=== PATIENT | female | born 1940 | race Caucasian/White ===

== ENCOUNTER 2019-10-29 09:28 | Emergency (ER) | payer MEDICARE ==
[~2019-10-29] VITALS: Ht 162.6 cm; Wt 66.4 kg
[~2019-10-29 09:28] MED LIST: ACET65TA OR; ACET65TA PO; AUGM875T27 PO; CIPR25SS PO; CIPR500T4 OR; CIPR500T89 PO; COLA50CA3 PO; CRES10TA32 OR; FEOS200T2 PO; FLAG500T OR; FLAG500T PO; No Historical Meds; ONDA-1 OR; ONDA-1 PO; PERC5TAB8 PO; PERC7.5T12 PO; PRAV40TA2 PO; TYLE325T5 PO; anexsia PO
[2019-10-29 10:38] LABS: BASO % 0.4 % (0.0-1.0); EOS # 0.1 10^3/uL (0.0-0.5); EOS % 1.5 % (0.0-3.0); HEMATOCRIT 42.7 % (36.0-47.0); HEMOGLOBIN 13.4 g/dl (12.0-15.5); LYMPH # 1.4 10^3/uL (1.5-5.0); LYMPH % 20.4 % (24.0-44.0); MEAN CORPUSCULAR HEMOGLOBIN 27.8 pg (27.0-33.0); MEAN CORPUSCULAR HGB CONC 31.4 g/dl (32.0-36.5); MEAN CORPUSCULAR VOLUME 88.6 fl (80.0-96.0); MONO # 0.6 10^3/uL (0.0-0.8); MONO % 9.1 % (0.0-5.0); NEUTROPHILS # 4.7 10^3/uL (1.5-8.5); NEUTROPHILS % 68.3 % (36.0-66.0); PLATELET COUNT, AUTOMATED 286 10^3/uL (150-450); RED BLOOD COUNT 4.82 10^6/uL (4.00-5.40); WHITE BLOOD COUNT 6.9 10^3/uL (4.0-10.0)
[2019-10-29 11:28] LABS: BILIRUBIN,DIRECT 0.2 MG/DL (0.0-0.2); BILIRUBIN,TOTAL 1.1 MG/DL (0.2-1.0); TOTAL PROTEIN 8.1 GM/DL (6.4-8.2)
--- NOTE | 2019-10-29 12:25 | REPVR ---
PROCEDURE INFORMATION: Exam: CT Abdomen And Pelvis Without Contrast Exam date and time: 10/29/2019 10:59 AM Age: 79 years old Clinical indication: Abdominal pain; Flank; Right; Additional info: Right flank pain TECHNIQUE: Imaging protocol: Computed tomography of the abdomen and pelvis without contrast. Radiation optimization: All CT scans at this facility use at least one of these dose optimization techniques: automated exposure control; mA and/or kV adjustment per patient size (includes targeted exams where dose is matched to clinical indication); or iterative reconstruction. COMPARISON: CT ABD PELVIS W/O FOL BY WIT 03/10/2013 3:55 PM FINDINGS: Limitations: Without oral contrast, evaluation of the gastro-intestinal tract is limited. Lungs: The lung bases are clear. Heart: Heart size is normal. Liver: Normal. No mass. Gallbladder and bile ducts: Cholelithiasis without evidence of cholecystitis. There is no gallbladder wall thickening or pericholecystic inflammation. The gallbladder is normal in size. Pancreas: Normal. No ductal dilation. Spleen: No splenomegaly. 1.4 cm splenule. Adrenals: The adrenal glands are normal. Kidneys and ureters: Four nonobstructing stones in the right kidney measure up to 3 mm. 2 mm nonobstructing calyceal stone in the lower left kidney. The kidneys and ureters are otherwise unremarkable. No hydronephrosis. Stomach and bowel: The stomach is grossly normal, but evaluation of the gastric wall is limited because the stomach is decompressed. Small bowel loops are normal in caliber. Right colectomy. The ileocolic anastomosis at the hepatic flexure is uncomplicated. Sigmoid colectomy. The colocolic anastomosis at proximal rectum is uncomplicated. Fecal retention in the transverse colon. The proximal transverse colon is 5.4 cm. Appendix: No evidence of appendicitis. Intraperitoneal space: Unremarkable. No free air. No significant fluid collection. Vasculature: There is mild calcific atherosclerosis of the abdominal aorta and iliac arteries. There is no aneurysm. Lymph nodes: There is no retrocrural, mesenteric, retroperitoneal, pelvic or inguinal lymphadenopathy. Bladder: Unremarkable as visualized. Reproductive: Hysterectomy. Bones/joints: Unremarkable. No acute fracture. Mild/moderate lumbar spinal degenerative changes. Soft tissues: Small fat containing midline ventral hernia 4 cm above the umbilicus. Diastasis of the rectus abdominus muscle. Mild umbilical eventration. IMPRESSION: 1. No acute abnormality in the abdomen or pelvis. 2. Bilateral nonobstructive nephrolithiasis. 3. Right colectomy. The ileocolic anastomosis at the hepatic flexure is uncomplicated. 4. Sigmoid colectomy. The colocolic anastomosis at proximal rectum is uncomplicated. 5. Fecal retention in the transverse colon. The proximal transverse colon is 5.4 cm. 6. Cholelithiasis without evidence of cholecystitis. 7. Small fat containing midline ventral hernia 4 cm above the umbilicus. 8. Diastasis of the rectus abdominus muscle. Mild umbilical eventration. 9. Hysterectomy. Electronically signed by: Trenton Milner On 10/29/2019 12:25:52 PM
[2019-10-29 13:10] VITALS: BP 126/88
== END 2019-10-29 13:18 | disposition home or self-care (01) ==
LOC: M ED 09:28
DX: K80.20 Calculus of gallbladder without cholecystitis without obstruction (principal); R35.0 Frequency of micturition; K56.41 Fecal impaction; N20.0 Calculus of kidney; Z87.442 Personal history of urinary calculi; Z85.42 Personal history of malignant neoplasm of other parts of uterus; Z90.49 Acquired absence of other specified parts of digestive tract; Z88.5 Allergy status to narcotic agent

== ENCOUNTER → 2021-07-09 | Outpatient (CLI) | payer MEDICARE | LOC: M PLAIMG 10:37 | PROVIDERS: ATTEND Physician Assistant | DX: M51.36 Other intervertebral disc degeneration, lumbar region (principal); M51.26 Other intervertebral disc displacement, lumbar region; M48.061 Spinal stenosis, lumbar region without neurogenic claudication ==

== ENCOUNTER 2021-09-07 06:54 | Emergency (ER) | payer MEDICARE ==
[~2021-09-07] VITALS: Ht 162.6 cm; Wt 63.2 kg
[2021-09-07 08:35] LABS: BASO % 0.3 % (0.0-1.0); EOS # 0.1 10^3/uL (0.0-0.5); EOS % 0.9 % (0.0-3.0); HEMATOCRIT 42.8 % (36.0-47.0); HEMOGLOBIN 13.8 g/dl (12.0-15.5); LYMPH # 1.4 10^3/uL (1.5-5.0); LYMPH % 15.5 % (24.0-44.0); MEAN CORPUSCULAR HEMOGLOBIN 28.4 pg (27.0-33.0); MEAN CORPUSCULAR HGB CONC 32.2 g/dl (32.0-36.5); MEAN CORPUSCULAR VOLUME 88.1 fl (80.0-96.0); MONO # 0.7 10^3/uL (0.0-0.8); MONO % 7.8 % (2.0-8.0); NEUTROPHILS % 74.9 % (36.0-66.0); PLATELET COUNT, AUTOMATED 378 10^3/uL (150-450); RED BLOOD COUNT 4.86 10^6/uL (4.00-5.40); WHITE BLOOD COUNT 9.3 10^3/uL (4.0-10.0)
[2021-09-07 09:45] LABS: ALBUMIN 4.1 GM/DL (3.2-5.2); BILIRUBIN,DIRECT 0.2 MG/DL (0.0-0.2); BILIRUBIN,TOTAL 1.1 MG/DL (0.2-1.0); CALCIUM LEVEL 10.6 MG/DL (8.8-10.2); CREATININE FOR GFR 1.16 MG/DL (0.55-1.30); POTASSIUM SERUM 4.4 MEQ/L (3.5-5.1); TOTAL PROTEIN 8.3 GM/DL (6.4-8.2)
[2021-09-07] MEDS ORDERED: NS 1,000 ML IV ONE (09:50)
[2021-09-07] MEDS ORDERED: ISOVUE-370 76% 100ML VIAL As Ordered ONE (09:54)
[2021-09-07 12:27] VITALS: BP 147/74
== END 2021-09-07 12:30 | disposition home or self-care (01) ==
LOC: M ED 06:54
DX: K52.9 Noninfective gastroenteritis and colitis, unspecified (principal); Z88.5 Allergy status to narcotic agent
CPT/HCPCS: 74177; 80048; 80076; 83690; 85025; 87486; 87507; 87581; 87633; 87798; 96360; 96361; 99284; Q9967

== ENCOUNTER 2022-07-06 12:32 | Emergency (ER) | payer MEDICARE ==
[~2022-07-06] VITALS: Ht 162.6 cm; Wt 66.9 kg
[2022-07-06 16:51] VITALS: BP 181/84
== END 2022-07-06 16:52 | disposition home or self-care (01) ==
LOC: M ED 12:32
DX: M94.262 Chondromalacia, left knee (principal); M17.12 Unilateral primary osteoarthritis, left knee; M25.762 Osteophyte, left knee; Z88.5 Allergy status to narcotic agent